=== PATIENT | female | born 1990 | race Caucasian/White ===

== ENCOUNTER 2021-02-04 09:45 | Emergency (ER) | payer OTHER ==
[2021-02-04 10:17] VITALS: BP 112/73; PULSE 72; TEMP 98.6; BMI 33.6
[2021-02-04 11:09] LABS: BASO % 0.5 % (0-2.0); EOS % 0.4 % (0-4.5); HEMATOCRIT 38.8 % (32.4-45.2); HEMOGLOBIN 13.3 GM/dL (10.7-15.3); LYMPH % 31.7 % (8-40); MCH 29.6 pg (25.7-33.7); MCHC 34.2 g/dl (32.0-36.0); MEAN CELL VOLUME 86.6 fl (80-96); MEAN PLT VOLUME 8.1 fl (7.5-11.1); MONO % 6.1 % (3.8-10.2); NEUT % 61.3 % (42.8-82.8); PLATELET COUNT 338 10^3/uL (134-434); RBC 4.48 M/mm3 (3.60-5.2); RDW 13.8 % (11.6-15.6); WHITE BLOOD COUNT 8.5 K/mm3 (4.0-10.0)
[2021-02-04 11:18] LABS: INR 0.96 (0.83-1.09); PROTHROMBIN TIME (PATIENT) 11.8 SEC (9.7-13.0)
[2021-02-04 11:25] LABS: CALCIUM 8.9 mg/dL (8.5-10.1)
[2021-02-04 11:26] LABS: ALBUMIN 3.8 g/dl (3.4-5.0)
[2021-02-04 11:29] LABS: CREATININE 0.7 mg/dL (0.55-1.3)
[2021-02-04 11:30] LABS: BILIRUBIN,TOTAL 0.3 mg/dL (0.2-1); TOT PROT 7.7 g/dl (6.4-8.2)
[2021-02-04 13:16] LABS: URINE APPEARANCE Clear; URINE BILIRUBIN Negative (NEGATIVE); URINE COLOR Yellow; URINE GLUCOSE (UA) Negative (NEGATIVE); URINE KETONE 2+ (NEGATIVE); URINE LEUK ESTERASE Negative (NEGATIVE); URINE NITRITE Negative (NEGATIVE); URINE PROTEIN Negative (NEGATIVE); URINE UROBILINOGEN 0.2 mg/dL (0.2-1.0)
[2021-02-04 13:30] LABS: EPI CELLS 1+ /uL (0-25.1); URINE RBC 0-3 /uL (0-23.9); URINE WBC 0-3 /uL (0-25.8)
== END 2021-02-04 13:25 | disposition home or self-care (01) ==
LOC: JER 09:45
DX: O26.891 Other specified pregnancy related conditions, first trimester (principal); R10.9 Unspecified abdominal pain; Z3A.01 Less than 8 weeks gestation of pregnancy
CPT/HCPCS: 36415; 76817-TC; 80053; 81003; 84702; 85025; 85610; 86850; 86900; 86901; 87086; 99281-25

== ENCOUNTER 2021-08-12 14:57 | Observation (INO) | payer OTHER ==
[2021-08-12 15:33] LABS: MCH 25.6 pg (25.7-33.7); MCHC 33.2 g/dl (32.0-36.0); MEAN PLT VOLUME 6.9 fl (7.5-11.1); PLATELET COUNT 411 10^3/uL (134-434); RDW 15.8 % (11.6-15.6); WHITE BLOOD COUNT 11.9 K/mm3 (4.0-10.0)
[2021-08-12 15:40] LABS: INR 0.97 (0.83-1.09); PROTHROMBIN TIME (PATIENT) 11.2 SEC (9.7-13.0)
[2021-08-12 15:43] LABS: ACTIVATED PTT 29.4 SECONDS (25.2-36.5)
[2021-08-12 15:57] LABS: CALCIUM 8.7 mg/dL (8.5-10.1)
[2021-08-12 15:58] LABS: ALBUMIN 2.4 g/dl (3.4-5.0)
[2021-08-12] MEDS: SODIUM CHLORIDE 1,000 ML IV SCH (16:00)
[2021-08-12 16:01] LABS: CREATININE 0.6 mg/dL (0.55-1.3)
[2021-08-12 16:02] LABS: TOT PROT 6.3 g/dl (6.4-8.2)
[2021-08-12 16:03] LABS: BILIRUBIN,TOTAL 0.2 mg/dL (0.2-1)
[2021-08-12 20:23] LABS: HEMOGLOBIN 9.6 GM/dL (10.7-15.3); MCH 25.7 pg (25.7-33.7); MCHC 33.1 g/dl (32.0-36.0); MEAN CELL VOLUME 77.4 fl (80-96); MEAN PLT VOLUME 7.1 fl (7.5-11.1); PLATELET COUNT 404 10^3/uL (134-434); RBC 3.75 M/mm3 (3.60-5.2); RDW 15.6 % (11.6-15.6); WHITE BLOOD COUNT 12.3 K/mm3 (4.0-10.0)
[2021-08-12 20:36] LABS: PROTHROMBIN TIME (PATIENT) 11.5 SEC (9.7-13.0)
[2021-08-13] MEDS: SODIUM CHLORIDE 1,000 ML IV SCH (04:30)
[2021-08-13 07:38] VITALS: BMI 39.6
[2021-08-13 10:13] VITALS: BP 119/65; PULSE 76; TEMP 98.3
== END 2021-08-13 12:25 | disposition home or self-care (01) ==
LOC: JDEL 14:57 → JLDR 23:00
PROVIDERS: ADMIT Obstetrics & Gynecology; ATTEND Obstetrics & Gynecology
PROC: 3E0337Z Introduction of Electrolytic and Water Balance Substance into Peripheral Vein, Percutaneous Approach (ICD-10-PCS; principal; 2021-08-12)
DX: O26.893 Other specified pregnancy related conditions, third trimester (principal); E66.8 Other obesity; Z3A.32 32 weeks gestation of pregnancy; W18.39XA Other fall on same level, initial encounter; Y93.89 Activity, other specified; Y92.89 Other specified places as the place of occurrence of the external cause
CPT/HCPCS: 36415; 59025; 76817-TC; 76819-TC; 80053; 85027; 85384; 85610; 85730; G0378

== ENCOUNTER 2021-09-27 09:15 | Inpatient (IN) | payer OTHER ==
[2021-09-27 10:26] VITALS: BMI 41.0
[2021-09-27 10:43] LABS: BASO % 0.3 % (0-2.0); EOS % 0.2 % (0-4.5); HEMATOCRIT 29.3 % (32.4-45.2); HEMOGLOBIN 9.5 GM/dL (10.7-15.3); LYMPH % 20.2 % (8-40); MCH 23.5 pg (25.7-33.7); MCHC 32.3 g/dl (32.0-36.0); MEAN CELL VOLUME 72.8 fl (80-96); MEAN PLT VOLUME 7.2 fl (7.5-11.1); MONO % 5.3 % (3.8-10.2); PLATELET COUNT 420 10^3/uL (134-434); RBC 4.03 M/mm3 (3.60-5.2); RDW 18.5 % (11.6-15.6); WHITE BLOOD COUNT 12.4 K/mm3 (4.0-10.0)
[2021-09-27 11:03] LABS: INR 0.93 (0.83-1.09); PROTHROMBIN TIME (PATIENT) 10.7 SEC (9.7-13.0)
[2021-09-27 11:06] LABS: ACTIVATED PTT 28.9 SECONDS (25.2-36.5)
[2021-09-27 11:07] LABS: BLOOD UREA NITROGEN 10.5 mg/dL (7-18)
[2021-09-27 11:10] LABS: CREATININE 0.7 mg/dL (0.55-1.3)
[2021-09-27] MEDS ORDERED: OXYTOCIN 30 UNITS in 0.9% NS 30 UNIT/500 ML INFUS.BAG IVPB ONE (11:24)
[2021-09-27] MEDS: OXYTOCIN 30 UNITS in 0.9% NS 30 UNIT/500 ML INFUS.BAG IVPB SCH (11:40)
[2021-09-27] MEDS ORDERED: PROMETHAZINE HCL 25 MG/1 ML VIAL ONE (16:43)
[2021-09-27] MEDS ORDERED: BUTORPHANOL TARTRATE 2 MG/ML VIAL ONE (16:43)
[2021-09-27] MEDS ORDERED: BUTORPHANOL TARTRATE 1 MG/ML VIAL IVPUSH ONE (16:46)
[2021-09-27] MEDS ORDERED: PROMETHAZINE HCL 25 MG/1 ML VIAL IVPUSH ONE (16:46)
[2021-09-27 19:14] LABS: ALBUMIN 2.4 g/dl (3.4-5.0)
[2021-09-27 19:17] LABS: BILIRUBIN,DIRECT 0.1 mg/dL (0.0-0.2); URIC ACID 4.5 mg/dL (2.6-7.2)
[2021-09-27 19:19] LABS: BILIRUBIN,TOTAL 0.2 mg/dL (0.2-1)
[2021-09-27 20:09] LABS: EPI CELLS 25 /uL (0-25.1); HYALINE CASTS 24 /uL (0-3.1); PH,URINE 6.5 (5.0-8.0); URINE APPEARANCE TURBID; URINE BILIRUBIN NEGATIVE (NEGATIVE); URINE COLOR YELLOW; URINE GLUCOSE (UA) NEGATIVE (NEGATIVE); URINE KETONE 3+ (NEGATIVE); URINE LEUK ESTERASE NEGATIVE (NEGATIVE); URINE NITRITE NEGATIVE (NEGATIVE); URINE PROTEIN TRACE (NEGATIVE); URINE RBC 449 /uL (0-23.9); URINE UROBILINOGEN 0.2 mg/dL (0.2-1.0); URINE WBC 5 /uL (0-25.8)
[2021-09-27] MEDS ORDERED: FENTANYL/BUPIVACAINE/NS/PF - PCEA - 50 ML DISP.SYRIN EP ONE (20:19)
[2021-09-27] MEDS ORDERED: BUPIVACAINE HCL/PF 0.25% (2.5MG/ML) 10 ML VIAL ONE (20:27)
[2021-09-27] MEDS ORDERED: LIDOCAINE HCL/EPINEPHRINE/PF 20 ML VIAL ONE (20:28)
[2021-09-27] MEDS ORDERED: ELECTROLYTE-148 SOLN 500 ML IV ONE ×2 (20:30→21:45)
[2021-09-27] MEDS: FENTANYL/BUPIVACAINE/NS/PF - PCEA - 50 ML DISP.SYRIN EP SCH (20:30)
[2021-09-27] MEDS ORDERED: NALOXONE HCL 0.4 MG/ML VIAL IVPUSH PRN (20:52)
[2021-09-27 21:25] LABS: URINE BACTERIA 190.7 /uL (0-1359); URINE CRYSTALS NONE SEEN /hpf
[2021-09-27] MEDS ORDERED: CITRIC ACID/SODIUM CITRATE 30 ML UNIT-DOSE CUP PO ONE (23:35)
[2021-09-28] MEDS ORDERED: morphine SULFATE/PF 1 MG/2 ML (2cc Syringe - QUVA) ONE ×4
[2021-09-28 00:53] LABS: CORD BASE EXCESS -3.8 mmol/L (0-2); CORD HCO3 21.2 mmHg (20-29); CORD pH 7.354 (7.14-7.44)
[2021-09-28 00:58] LABS: CORD HCO3 23.9 mmHg (20-29); CORD PCO2 50.9 mmHg (30-78); CORD pH 7.289 (7.14-7.44)
[2021-09-28] MEDS ORDERED: ACETAMINOPHEN 325 MG TABLET (FP) PO PRN (01:02)
[2021-09-28] MEDS ORDERED: ONDANSETRON 4 MG/2 ML VIAL IVPUSH PRN (01:02)
[2021-09-28] MEDS ORDERED: BENZOCAINE 28 GM HEMORRHOIDAL OINTMENT TP PRN (01:07)
[2021-09-28] MEDS ORDERED: IBUPROFEN 800 MG/8 ML IJ IVPB PRN (01:07)
[2021-09-28] MEDS ORDERED: SENNOSIDES/DOCUSATE COMBO (SENNA PLUS) TABLET (UD) PO PRN (01:07)
[2021-09-28] MEDS ORDERED: BENZOCAINE 20% 57 GM BOTTLE TP PRN (01:07)
[2021-09-28] MEDS ORDERED: METHYLERGONOVINE MALEATE 0.2 MG/1 ML AMP IM PRN (01:07)
[2021-09-28] MEDS: OXYTOCIN 20 UNITS in 0.9% NS 20 UNIT/1,000 ML INFUS.BAG IV SCH ×2 (02:30→12:00)
[2021-09-28] MEDS ORDERED: OXYTOCIN 20 UNITS in 0.9% NS 20 UNIT/1,000 ML INFUS.BAG IV ONE (02:44)
[2021-09-28] MEDS: PRENATAL VITAMINS W/ FOLIC ACID TABLET (FP) PO SCH (10:06)
[2021-09-28] MEDS ORDERED: oxyCODONE HCL 5 MG TABLET PO PRN (13:07)
[2021-09-28] MEDS: OXYTOCIN 30 UNITS in 0.9% NS 30 UNIT/500 ML INFUS.BAG IVPB SCH (15:58)
[2021-09-28] MEDS: FENTANYL/BUPIVACAINE/NS/PF - PCEA - 50 ML DISP.SYRIN EP SCH (21:49)
[2021-09-29] MEDS: IBUPROFEN 600 MG TABLET (FP) PO PRN ×3 (00:55→17:00)
[2021-09-29] MEDS: SIMETHICONE 80 MG TAB.CHEW (FP) PO PRN ×2 (00:55→19:58)
[2021-09-29] MEDS ORDERED: BISACODYL 10 MG SUPP.RECT RC PRN (01:07)
[2021-09-29 09:41] LABS: BASO % 0.3 % (0-2.0); EOS % 0.6 % (0-4.5); HEMATOCRIT 26.2 % (32.4-45.2); HEMOGLOBIN 8.3 GM/dL (10.7-15.3); LYMPH % 18.3 % (8-40); MCH 23.8 pg (25.7-33.7); MCHC 31.8 g/dl (32.0-36.0); MEAN CELL VOLUME 74.7 fl (80-96); MEAN PLT VOLUME 7.3 fl (7.5-11.1); MONO % 7.1 % (3.8-10.2); NEUT % 73.7 % (42.8-82.8); PLATELET COUNT 357 10^3/uL (134-434); RBC 3.51 M/mm3 (3.60-5.2); RDW 18.4 % (11.6-15.6)
[2021-09-29] MEDS: PRENATAL VITAMINS W/ FOLIC ACID TABLET (FP) PO SCH (09:58)
[2021-09-29] MEDS ORDERED: DIPHTH,PERTUSS(ACELL),TET 0.5 ML DISP.SYRIN IM ONE (10:00)
[2021-09-30] MEDS: IBUPROFEN 600 MG TABLET (FP) PO PRN ×4 (03:32→20:19)
[2021-09-30 07:59] LABS: BASO % 0.3 % (0-2.0); EOS % 1.7 % (0-4.5); HEMOGLOBIN 9.1 GM/dL (10.7-15.3); LYMPH % 22.5 % (8-40); MCH 23.9 pg (25.7-33.7); MCHC 32.4 g/dl (32.0-36.0); MONO % 6.1 % (3.8-10.2); NEUT % 69.4 % (42.8-82.8); PLATELET COUNT 474 10^3/uL (134-434); RBC 3.78 M/mm3 (3.60-5.2); WHITE BLOOD COUNT 13.1 K/mm3 (4.0-10.0)
[2021-09-30] MEDS: SIMETHICONE 80 MG TAB.CHEW (FP) PO PRN ×2 (08:18→20:19)
[2021-09-30] MEDS: PRENATAL VITAMINS W/ FOLIC ACID TABLET (FP) PO SCH (09:08)
[2021-09-30 20:15] VITALS: TEMP 97.9
[2021-10-01] MEDS: IBUPROFEN 600 MG TABLET (FP) PO PRN (06:37)
[2021-10-01] MEDS: SIMETHICONE 80 MG TAB.CHEW (FP) PO PRN (06:37)
[2021-10-01 08:06] LABS: BASO % 0.3 % (0-2.0); EOS % 1.8 % (0-4.5); HEMATOCRIT 28.7 % (32.4-45.2); HEMOGLOBIN 9.1 GM/dL (10.7-15.3); LYMPH % 23.6 % (8-40); MCH 23.7 pg (25.7-33.7); MCHC 31.9 g/dl (32.0-36.0); MEAN CELL VOLUME 74.3 fl (80-96); MEAN PLT VOLUME 7.1 fl (7.5-11.1); MONO % 6.1 % (3.8-10.2); NEUT % 68.2 % (42.8-82.8); PLATELET COUNT 480 10^3/uL (134-434); RBC 3.86 M/mm3 (3.60-5.2); WHITE BLOOD COUNT 9.7 K/mm3 (4.0-10.0)
[2021-10-01] MEDS: PRENATAL VITAMINS W/ FOLIC ACID TABLET (FP) PO SCH (09:41)
[2021-10-01 10:30] VITALS: BP 126/75; PULSE 80
== END 2021-10-01 11:55 | disposition home or self-care (01) | DRG 540 ==
LOC: JLDR 09:15 → J3W 09-28 03:05
PROVIDERS: ADMIT Obstetrics & Gynecology; ATTEND Obstetrics & Gynecology
PROC: 10D00Z1 Extraction of Products of Conception, Low, Open Approach (ICD-10-PCS; principal; 2021-09-28)
DX: O76 Abnormality in fetal heart rate and rhythm complicating labor and delivery (principal); O99.02 Anemia complicating childbirth; D64.9 Anemia, unspecified; Z3A.39 39 weeks gestation of pregnancy; Z37.0 Single live birth
CPT/HCPCS: 36415; 36600; 80048; 80076; 81003; 82803; 84550; 85025; 85610; 85730; 86780; 86850; 86900; 86901; 88307-TC; 90715; 94010; C9803; U0003; U0005

== ENCOUNTER 2025-03-11 17:56 | Emergency (ER) | payer OTHER ==
[2025-03-11 18:04] VITALS: BP 122/71; PULSE 64; RESP 18; TEMP 98.6; BMI 37.8
[2025-03-11] MEDS: SODIUM CHLORIDE 0.9% 500 ML INFUS.BAG IV ONE (19:03)
[2025-03-11 19:08] LABS: ABSOLUTE IMMATURE GRANULOCYTES 0.02 x10^3/uL (0.0-0.031); BASOPHILS # 0.04 x10^3/uL (0.01-0.08); EOSINOPHIL % 1.0 % (0.7-5.8); EOSINOPHILS # 0.09 x10^3/uL (0.04-0.36); MCHC 32.3 g/dl (32.2-35.5); MEAN CELL VOLUME 81.5 fl (79.4-94.8); MEAN PLT VOLUME 9.2 fl (9.4-12.3); MONOCYTE # 0.67 x10^3/uL (0.24-0.86); MONOCYTE % 7.4 % (4.7-12.5); RDW 15.1 % (12.1-16.8)
[2025-03-11 19:38] LABS: CO2 26.0 mmol/L (21-32)
[2025-03-11 19:39] LABS: GLUCOSE,RANDOM 109.0 mg/dL (74-106)
[2025-03-11 19:41] LABS: SGPT/ALT 19.0 U/L (13-61)
[2025-03-11 19:42] LABS: CREATININE 0.8 mg/dL (0.55-1.3); SGOT/AST 14.0 U/L (15-37)
[2025-03-11 19:43] LABS: TOT PROT 7.6 g/dl (6.4-8.2)
[2025-03-11 19:46] LABS: ALK PHOS 101.0 U/L (45-117)
[2025-03-11] MEDS ORDERED: KETOROLAC TROMETHAMINE 15 MG/ML VIAL ONE (20:23)
[2025-03-11] MEDS ORDERED: METOCLOPRAMIDE HCL INJECTION 10 MG/2 ML VIAL ONE (20:23)
[2025-03-11] MEDS: KETOROLAC TROMETHAMINE 15 MG/ML VIAL IVPUSH ONE (20:33)
[2025-03-11] MEDS: METOCLOPRAMIDE HCL INJECTION 10 MG/2 ML VIAL IVPB ONE (20:33)
[2025-03-14 14:29] LABS: HIV INTERPRETATION NEGATIVE (NEGATIVE)
[2025-03-14 21:52] LABS: HCV DIAGNOSTIC IN-HOUSE W/RFLX NON-REACTIVE (NONREACTIVE)
== END 2025-03-11 21:14 | disposition home or self-care (01) ==
LOC: JER 17:56
PROC: 3E033GC Introduction of Other Therapeutic Substance into Peripheral Vein, Percutaneous Approach (ICD-10-PCS; principal; 2025-03-11)
PROC: 3E0333Z Introduction of Anti-inflammatory into Peripheral Vein, Percutaneous Approach (ICD-10-PCS; 2025-03-11)
DX: G43.909 Migraine, unspecified, not intractable, without status migrainosus (principal); R42 Dizziness and giddiness; M62.838 Other muscle spasm
CPT/HCPCS: 36415; 70450-TC; 80053; 83735; 84439; 84443; 84703; 85025; 86803; 87389; 93005; 93010; 99285-25